=== PATIENT | female | born 1965 | race Caucasian/White ===

== ENCOUNTER 2017-12-07 11:59 | Emergency (ER) | payer SELFPAY ==
[~2017-12-07] VITALS: Ht 170.2 cm; Wt 82.0 kg
[~2017-12-07 11:59] MED LIST: ASPI81TA82 PO; FLUO-1 PO; HUMALOGP SQ; LANTUS2P SC; LISI-515 PO; LISI20 PO; METF500 PO; MULTCAP2 PO; OMEGCAP PO; PRED20 PO; PRIL40CA PO; VITA10002 PO
[2017-12-07 12:04] VITALS: BP 143/89; PULSE 101; RESP 17; TEMP 98.2; O2SAT 98
[2017-12-07] MEDS ORDERED: KETOROLAC TROMETHAMINE 30 MG/ML (IVP) VIAL IV PUSH ONE (12:15)
--- NOTE | 2017-12-07 12:48 | RADRPT ---
EXAM DATE/TIME: 12/07/2017 12:31 [facility] COMPARISON: No previous studies available for comparison. INDICATIONS : Right ankle pain and swelling. No known injury. MEDICAL HISTORY : Spinal stenosis. Hypertension. Diabetes mellitus type 2. Hypercholesterolemia. SURGICAL HISTORY : None. ENCOUNTER: Initial ACUITY: 4 - 6 days PAIN SCORE: 8/10 LOCATION: Right ankle. FINDINGS: Three view exam was performed of the right ankle. The bony structures are in normal alignment. No e vidence of fracture, dislocation, or soft tissue swelling. The ankle mortise is intact. No radiopaq ue foreign bodies are seen. Bony mineralization is normal. There is a large spur off the inferior ca lcaneus. CONCLUSION: 1. Large spur off the inferior calcaneus. 2. No acute fracture or underlying bony abnormality. Thomas Mcgarry MD on December 07, 2017 at 12:46 Board Certified Radiologist. This report was verified electronically.
--- NOTE | 2017-12-07 12:49 | RADRPT ---
EXAM DATE/TIME: 12/07/2017 12:32 [facility] COMPARISON: No previous studies available for comparison. INDICATIONS : Left ankle pain and swelling. MEDICAL HISTORY : Hypertension. Diabetes mellitus type 2. Hypercholesterolemia. Spinal stenosis. SURGICAL HISTORY : None. ENCOUNTER: Initial ACUITY: 3 days PAIN SCORE: 8/10 LOCATION: Left ankle. FINDINGS: Three view exam was performed of the left ankle. The bony structures are in normal alignment. No ev idence of fracture, dislocation, or soft tissue swelling. The ankle mortise is intact. No radiopaqu e foreign bodies are seen. Bony mineralization is normal. There is a moderate to large spur off the inferior calcaneus at the site of attachment atherosclerosis. CONCLUSION: 1. Moderate to large spur of the calcaneus. 2. No evidence of fracture or underlying bony abnormality. Thomas Mcgarry MD on December 07, 2017 at 12:46 Board Certified Radiologist. This report was verified electronically.
[2017-12-07 13:10] LABS: AUTOMATED NEUTROPHIL # 5.1 TH/MM3 (1.8-7.7); BASOPHIL # 0.1 TH/MM3 (0-0.2); BASOPHIL % 0.8 % (0.0-2.0); EOSINOPHIL # 0.4 TH/MM3 (0-0.4); HEMATOCRIT 43.9 % (35.0-46.0); HEMOGLOBIN 15.9 GM/DL (11.6-15.3); LYMPH % 35.7 % (9.0-44.0); LYMPHOCYTE # 3.5 TH/MM3 (1.0-4.8); MEAN CELL VOLUME 91.9 FL (80.0-100.0); MEAN CORPUSCULAR HEMOGLOBIN 33.3 PG (27.0-34.0); MONO % 7.4 % (0.0-8.0); MONOCYTE # 0.7 TH/MM3 (0-0.9); NEUT % 52.1 % (16.0-70.0); PLATELET COUNT 174 TH/MM3 (150-450); RED BLOOD COUNT 4.77 MIL/MM3 (4.00-5.30); RED CELL DISTRIBUTION WIDTH 12.9 % (11.6-17.2); WHITE BLOOD COUNT 9.7 TH/MM3 (4.0-11.0)
[2017-12-07] MEDS ORDERED: traMADol HCL 50 MG TAB PO ONE (13:15)
[2017-12-07 13:16] LABS: MEAN CORPUSCULAR HGB CONC 36.2 % (32.0-36.0)
[2017-12-07 13:27] LABS: ALBUMIN 3.8 GM/DL (3.4-5.0); ALT (GPT) 38 U/L (10-53); AST (GOT) 24 U/L (15-37); BLOOD UREA NITROGEN 14 MG/DL (7-18); CALCIUM 9.1 MG/DL (8.5-10.1); CHLORIDE 104 MEQ/L (98-107); CREATININE 0.77 MG/DL (0.50-1.00); GLOMERULAR FILTRATION RATE 79 ML/MIN (>89); GLUCOSE,RANDOM 255 MG/DL (74-106); SODIUM (NA) 137 MEQ/L (136-145)
[2017-12-07 13:30] LABS: ALKALINE PHOSPHATASE 90 U/L (45-117); TOTAL BILIRUBIN ADULT 0.4 MG/DL (0.2-1.0); TOTAL PROTEIN 7.9 GM/DL (6.4-8.2)
[2017-12-07] MEDS ORDERED: GABAPENTIN 300 MG CAP PO ONE (14:30)
--- NOTE | 2017-12-07 14:37 | RADRPT ---
EXAM DATE/TIME: 12/07/2017 13:25 [facility] COMPARISON: No previous studies available for comparison. INDICATIONS : Bilateral leg swelling. MEDICAL HISTORY : Myocardial infarction. Hypercholesterolemia. Hypertension. Anticoagulant therapy. COPD. Pneumonia. Ki dney stones. Hiatal hernia. GERD. Spinal stenosis. Diabetes. Post traumatic stress disorder. Depressi on. Anxiety. Claustrophobia. SURGICAL HISTORY : Tonsillectomy. Bilateral knee surgery. Pre cancerous cells on ovaries removed. ENCOUNTER: Initial ACUITY: 2 day PAIN SCORE: 3/10 LOCATION: Bilateral legs. TECHNIQUE: Venous ultrasound of the left and right leg was performed from the inguinal ligament to the proximal calf. Real-time, color Doppler and spectral tracing, compression and augmentation techniques were us ed. FINDINGS: RIGHT LEG: There is normal compressibility of the deep venous system from the inguinal region to the proximal ca lf. No echogenic clot is seen in the lumen of the common femoral, femoral, popliteal, and posterior tibial veins. There is a normal response of the venous system to proximal and distal augmentation an d respiration. LEFT LEG: There is normal compressibility of the deep venous system from the inguinal region to the proximal ca lf. No echogenic clot is seen in the lumen of the common femoral, femoral, popliteal, and posterior tibial veins. There is a normal response of the venous system to proximal and distal augmentation an d respiration. CONCLUSION: Negative exam. No sonographic or Doppler findings of deep venous thrombosis. Hussein Cabral MD on December 07, 2017 at 14:34 Board Certified Radiologist. This report was verified electronically.
[2017-12-07] MEDS ORDERED: TRAM50TA PO (15:17)
--- NOTE | 2017-12-07 15:17 | PD ---
HPI Chief Complaint: Musculoskeletal Complaint Time Seen by Provider: 12:09 Travel History International Travel<30 days: No Contact w/Intl Traveler<30days: No Traveled to known affect area: No History of Present Illness HPI Patient is a 52 year old female who comes in complaining of leg pain. She says it started in her left leg and now her right leg hurts. She has history of neuropathy and has noticed her ankle swelling. She denies chest pain or SOB. She has taken Tylenol without relief of her symptoms. She says this has been going on for the past month. She complains of occasional numbness, but says this is related to her spinal stenosis and has not changed in a long time. She recently moved back here from [facility] and has an appointment with a new PCP on December 16. She denies nay injuries. Severity is mild to moderate. PFSH Past Medical History Hx Anticoagulant Therapy: Yes Anxiety: Yes Depression: Yes Heart Rhythm Problems: Yes ("HEART SKIPS A BEAT") Cardiac Catheterization: No Cardiovascular Problems: Yes High Cholesterol: Yes Congestive Heart Failure: No COPD: Yes Diabetes: Yes (INSULIN DEPENDENT) Patient Takes Glucophage: Yes (today 1000mg bid) Diminished Hearing: No Endocrine: Yes Gastrointestinal Disorders: Yes (KIDNEY STONES) GERD: Yes Genitourinary: Yes (KIDNEY STONES) Hiatal Hernia: Yes Heparin Induced Thrombocytopen: No Hypertension: Yes Immune Disorder: No Inguinal Hernia: Yes Implanted Vascular Access Dvce: No Kidney Stones: Yes Musculoskeletal: Yes (BILATERAL KNEE SURGERY, spinal stenosis, narrowing) Neurologic: No Psychiatric: Yes (PTSD) Respiratory: Yes Pneumonia: Yes Thyroid Disease: No Tetanus Vaccination: < 5 Years Influenza Vaccination: No ?: Not LMP: post Menopausal: Yes : 0 Para: 0 Miscarriage: 0 : 0 Past Surgical History Coronary Artery Bypass Graft: No Tonsillectomy: Yes Other Surgery: Yes (LEEP) Social History Alcohol Use: Yes (OCC) Tobacco Use: Yes (last february 2017) Substance Use: No Allergies-Medications (Allergen,Severity, Reaction): Coded Allergies: morphine (Unverified Allergy, Severe, Nausea/Vomiting, 04/02/17) varenicline (Unverified Allergy, Intermediate, N/V, 04/02/17) diatrizoate meglumine (Unverified Adverse Reaction, Severe, 04/02/17) diatrizoate sodium (Unverified Adverse Reaction, Severe, 04/02/17) erythromycin base (Unverified Adverse Reaction, Intermediate, N/V, 04/02/17 ) Reported Meds & Prescriptions Reported Meds & Active Scripts Active Lisinopril 20 Mg Tab 20 Mg PO BID Deltasone 20 Mg Tab (Prednisone) 20 Mg Tab 60 Mg PO DAILY 5 Days Prinivil 20 mg (Lisinopril) 20 Mg Tab 40 Mg PO BID Glucophage 500 mg (Metformin HCl) 500 Mg Tab 1,000 Mg PO BIDPC Reported [id number] Mcg 1,000 Mcg Tab 1,000 Mcg PO DAILY [place] Essentials/Vitamin ([place]-3 Fatty Acids-Cholecalci) 1 Cap Cap 1 Cap PO BID Humalog Insulin Supplemental Scale (Insulin Human Lispro) 100 Units/Ml Inj 2- 12 Units SQ TIDACHS Medium Dose Lispro Insulin Sliding Scale = Max dose at bedtime:( )units; Max dose at 3am:( ); blood sugars less than 70 take zero insulin units; blood sugars 150-199 take 2 unit; blood sugars 200-249 take 4 units; blood sugars 250-299 take 7 units; blood sugars 300-349 take 10 units; blood sugars greater than 349 take 12 units Lantus (Insulin Glargine) 100 Units/Ml Inj 20 Unit SC HS Multi For Her 50+ (Amino Acids/Minerals/Vitamins) Cap 1 Cap PO DAILY Prozac (Fluoxetine HCl) 10 Mg Cap 40 Mg PO HS Prilosec 40 mg cap (Omeprazole) 40 Mg Cap 40 Mg PO DAILY PRN Aspir-81 (Aspirin) 81 Mg Tab 81 Mg PO DAILY Review of Systems Except as stated in HPI: all other systems reviewed are Neg General / Constitutional: No: Fever, Chills HENT: No: Headaches, Lightheadedness Cardiovascular: No: Chest Pain or Discomfort Respiratory: No: Shortness of Breath Musculoskeletal: Positive: Edema, Pain Skin: No Rash, No Change in Pigmentation Neurologic: No: Weakness, Dizziness Physical Exam Narrative GENERAL: Awake and alert, in no acute distress. SKIN: Focused skin assessment warm/dry. HEAD: Atraumatic. Normocephalic. EYES: Pupils equal and round. No scleral icterus. No injection or drainage. ENT: Mucous membranes pink and moist. NECK: Trachea midline. No JVD. CARDIOVASCULAR: Regular rate and rhythm. No murmur appreciated. RESPIRATORY: No accessory muscle use. Clear to auscultation. Breath sounds equal bilaterally. MUSCULOSKELETAL: No obvious deformities. No clubbing. No cyanosis. Mild edema of the left ankle, no edema of bilateral legs. Pedal pulses intact. No calf tenderness. Pain with movement of her left ankle. NEUROLOGICAL: Awake and alert. No obvious cranial nerve deficits. Motor grossly within normal limits. Normal speech. PSYCHIATRIC: Appropriate mood and affect; insight and judgment normal. Data Data Last Documented VS Vital Signs Date Time Temp Pulse Resp B/P (MAP) Pulse Ox O2 Delivery O2 Flow Rate FiO2 12/07/17 12:04 98.2 101 17 143/89 (107) 98 Orders Orders Iv Access Insert/Monitor (12/07/17 12:14) Complete Blood Count With Diff (12/07/17 12:14) Comprehensive Metabolic Panel (12/07/17 12:14) Creatine Kinase (Cpk) (12/07/17 12:14) Ankle, Complete ([id number]) (12/07/17 ) Ankle, Complete ([id number]) (12/07/17 ) Us Leg Venous Doppler Bilat (12/07/17 ) Ketorolac Inj (Toradol Inj) (12/07/17 12:15) Act Partial Throm Time (Ptt) (12/07/17 12:14) Prothrombin Time / Inr (Pt) (12/07/17 12:14) Tramadol (Ultram) (12/07/17 13:15) Gabapentin (Neurontin) (12/07/17 14:30) Labs Laboratory Tests Test 12/07/17 12:50 White Blood Count 9.7 TH/MM3 Red Blood Count 4.77 MIL/MM3 Hemoglobin 15.9 GM/DL Hematocrit 43.9 % Mean Corpuscular Volume 91.9 FL Mean Corpuscular Hemoglobin 33.3 PG Mean Corpuscular Hemoglobin Concent 36.2 % Red Cell Distribution Width 12.9 % Platelet Count 174 TH/MM3 Mean Platelet Volume 10.0 FL Neutrophils (%) (Auto) 52.1 % Lymphocytes (%) (Auto) 35.7 % Monocytes (%) (Auto) 7.4 % Eosinophils (%) (Auto) 4.0 % Basophils (%) (Auto) 0.8 % Neutrophils # (Auto) 5.1 TH/MM3 Lymphocytes # (Auto) 3.5 TH/MM3 Monocytes # (Auto) 0.7 TH/MM3 Eosinophils # (Auto) 0.4 TH/MM3 Basophils # (Auto) 0.1 TH/MM3 CBC Comment AUTO DIFF Differential Comment AUTO DIFF CONFIRMED Prothrombin Time 10.0 SEC Prothromb Time International Ratio 1.0 RATIO Activated Partial Thromboplast Time 27.3 SEC Blood Urea Nitrogen 14 MG/DL Creatinine 0.77 MG/DL Random Glucose 255 MG/DL Total Protein 7.9 GM/DL Albumin 3.8 GM/DL Calcium Level 9.1 MG/DL Alkaline Phosphatase 90 U/L Aspartate Amino Transf (AST/SGOT) 24 U/L Alanine Aminotransferase (ALT/SGPT) 38 U/L Total Bilirubin 0.4 MG/DL Sodium Level 137 MEQ/L Potassium Level 4.1 MEQ/L Chloride Level 104 MEQ/L Carbon Dioxide Level 23.0 MEQ/L Anion Gap 10 MEQ/L Estimat Glomerular Filtration Rate 79 ML/MIN Total Creatine Kinase 72 U/L [facility] Medical Decision Making Medical Screen Exam Complete: Yes Emergency Medical Condition: Yes Medical Record Reviewed: Yes Differential Diagnosis chronic pain vs rhabdo vs ankle injury vs DVT vs dependent edema Narrative Course Patient is a 52 year old female who comes in complaining of pain to her lower extremities. Exam shows mild swelling of the left ankle and pain with movement of the ankle. IV established, labs sent. Labs show no acute abnormalities. US of the legs show no acute abnormalities. XR of the ankles show no acute abnormalities. Last 24 hours Impressions Lower Extremity Ultrasound 12/07/17 0000 Signed Impressions: Service Date/Time: Thursday, December 07, 2017 13:25 - CONCLUSION: Negative exam. No sonographic or Doppler findings of deep venous thrombosis. Hussein Cabral MD Ankle X-Ray 12/07/17 0000 Signed Impressions: Service Date/Time: Thursday, December 07, 2017 12:31 - CONCLUSION: 1. Large spur off the inferior calcaneus. 2. No acute fracture or underlying bony abnormality. Thomas Mcgarry MD Ankle X-Ray 12/07/17 0000 Signed Impressions: Service Date/Time: Thursday, December 07, 2017 12:32 - CONCLUSION: 1. Moderate to large spur of the calcaneus. 2. No evidence of fracture or underlying bony abnormality. Thomas Mcgarry MD Patient given Tramadol and Gabapentin. Given a prescription for Tramadol (does not want Gabapentin). Advised to keep her appointment on December 16 and return to the ED as needed for any worsening symptoms. Diagnosis Primary Impression: Neuropathy Additional Impression: Lower extremity edema Patient Instructions: Diabetic Peripheral Neuropathy (ED), Edema (ED), General Instructions Additional Instructions: Follow-up with your scheduled appointment. Return to the ED as needed for any worsening symptoms. Scripts Tramadol (Tramadol) 50 Mg Tab 50 MG PO Q6H Y for PAIN, #10 TAB 0 Refills Prov: Yamila Craft MD 12/07/17 Disposition: DISCHARGE HOME Condition: Stable Yamila Craft MD Dec 07, 2017 15:17
== END 2017-12-07 15:27 | disposition home or self-care (01) ==
LOC: NEPD 11:59
DX: G62.9 Polyneuropathy, unspecified (principal); R60.0 Localized edema; E78.00 Pure hypercholesterolemia, unspecified; J44.9 Chronic obstructive pulmonary disease, unspecified; I10 Essential (primary) hypertension; E11.40 Type 2 diabetes mellitus with diabetic neuropathy, unspecified; F32.9 Major depressive disorder, single episode, unspecified; F43.10 Post-traumatic stress disorder, unspecified; Z79.84 Long term (current) use of oral hypoglycemic drugs; Z79.82 Long term (current) use of aspirin; Z79.4 Long term (current) use of insulin
CPT/HCPCS: 73610; 80053; 82550; 85025; 85610; 85730; 93970